=== PATIENT | female | born 1990 | race Caucasian/White ===

== ENCOUNTER → 2016-07-31 | Outpatient (CLI) | payer OTHER ==
[~2016-07-31] MED LIST: AMITRIPTYLINE10 MG PO; CIPRO 500MG TA500 MG PO; CITALOPRAM20 MG PO; ENABLEX15 MG PO; IMODIUM2 MG OR; IRON TABLETS325 MG PO; MULTI VITAMINS1 TAB PO; NAPROSYN 500MG500 MG PO; PERCOCET 5/3251 EACH PO; PHENERGAN 25MG.25 M1 PO; PROBIOTICA100 MILLIO PO; PYRIDIUM 200MG200 MG PO; XANAX 0.5MG TA0.5 MG PO
[2016-07-31 17:02] LABS: HEMOGLOBIN 15.4 g/dL (12.2-16.2); LYMPH # 1.8 K/mm3 (0.7-4.5)
[2016-07-31 19:24] LABS: BUN 16 mg/dL (7-18); GFR (ESTIMATED) 85 ML/MIN (59-)
[2016-08-02 08:43] LABS: Vitamin D, 25-Hydroxy 20.3 ng/mL (30.0-100.0)
== END ==
LOC: LAB 16:37
PROVIDERS: Physician Assistant
DX: R53.83 Other fatigue (principal); R63.5 Abnormal weight gain

== ENCOUNTER 2016-08-16 09:36 | Emergency (ER) | payer OTHER ==
[~2016-08-16] VITALS: Ht 157.5 cm; Wt 79.4 kg
--- OUTSIDE RECORDS SUMMARY | 2016-08-16 09:41 | External Medical Summary Rpt ---
Author Author , Organization [employer] Address Unknown Phone Unavailable Care Team Providers Care Head Tennis Coach Name Role Phone Seth Fischer MD, Unavailable Unavailable Seth Fischer MD Purpose Continuity of Care Document - 03-06-2013 through 2016 Problems Code Diagnosis DOS Provider Status 285.1 285.1 AC 03-12-2013 [place] [facility] 998.11 998.11 03-12-2013 [facility] PROCEDURE Allergies, Adverse Reactions, Alerts Type Drug Allergy Adverse Reaction to Substance Substance Reaction Severity Penicillin I-RASH Unknown SULFA (sulfonamide) I-RASH Unknown Medications Na ND Rx Da Fi Fi Am Da Di Ph RX Ph St me C No te ll ll ou ys ag ar # ys at rm s nt no ma ic us Or Da si cy ia de te s n re d PN 00 11 0 No EU 00 -2 MO 64 8- Lo VA 94 20 ng X 30 13 er 23 0 Ac ti AL ve SO 00 11 0 No DI 40 -2 UM 97 7- Lo 98 20 ng CH 30 13 er LO 9 RI Ac DE ti ve 0. 9% SO MARGARETH TI ON LA [address] 40 -2 AT 97 7- Lo ED 95 20 ng 30 13 er RI 9 NG Ac ER ti S ve IN JE CT IO N Sa 63 11 1 No li 80 -2 ne 70 7- Lo 10 20 ng Fl 07 13 er us 5 h Ac 10 ti ML ve Sy ri ng e KE 00 11 0 No TO 40 -2 RO 93 7- Lo LA 79 20 ng C 50 13 er 30 1 Ac MG ti /M ve L AL OX 00 11 1 No YC 40 -2 OD 60 7- Lo ON 51 20 ng E- 26 13 er AC 2 ET Ac AM ti IN ve OP HE N 5- 32 5 Mo 00 11 0 No rp 40 -2 hi 91 7- Lo ne 25 20 ng 83 13 er 4M 0 G/ Ac Ml ti ve Sy ri ng e OX 00 11 1 No AZ 22 -2 EP 82 7- Lo AM 06 20 ng 91 13 er 15 0 Ac MG ti ve CA PS UL E Mo 00 11 1 No rp 40 -2 hi 91 7- Lo ne 25 20 ng 83 13 er 4M 0 G/ Ac Ml ti ve Sy ri ng e ON 00 11 1 No DA 64 -2 NS 16 7- Lo ET 08 20 ng RO 02 13 er N 5 HC Ac L ti 4 ve MG /2 ML AL LA [address] 40 -2 AT 97 3- Lo ED 95 20 ng 30 13 er RI 9 NG Ac ER ti S ve IN JE CT IO N LO 00 11 0 No VE 07 -2 NO 50 3- Lo X 62 20 ng 40 04 13 er 1 MG Ac /0 ti .4 ve ML SY RI NG E LE 00 11 1 No XA 45 -2 CO 62 3- Lo O 02 20 ng 20 06 13 er 3 MG Ac ti TA ve BL ET OX 00 11 1 No YC 40 -2 OD 60 3- Lo ON 55 20 ng E 26 13 er HC 2 L Ac 5 ti MG ve TA BL ET AM 51 11 1 No IT 07 -2 RI 90 3- Lo PT 10 20 ng YL 72 13 er IN 0 E Ac HC ti L ve 25 MG TA B CE 00 11 0 No FA 40 -2 ZO 92 2- Lo LI 58 20 ng N 50 13 er 1 1 GM Ac ti AD ve D- VA N AL SO 00 11 0 No DI 40 -2 UM 97 2- Lo 10 20 ng CH 16 13 er LO 6 RI Ac DE ti ve 0. 9% SO LN LA [address] 40 -2 AT 97 2- Lo ED 95 20 ng 30 13 er RI 9 NG Ac ER ti S ve IN JE CT IO N SO 00 11 0 No DI 40 -2 UM 97 2- Lo 97 20 ng CH 20 13 er LO 8 RI Ac DE ti ve 0. 9% IR RI G. LO 00 11 0 No VE 07 -2 NO 50 2- Lo X 62 20 ng 30 43 13 er 1 MG Ac /0 ti .3 ve ML SY RI NG E NA 63 11 0 No RO 32 -2 PI 30 2- Lo N 28 20 ng 0. 63 13 er 5% 0 Ac 15 ti 0 ve MG /3 0 ML AL MA 00 11 2 No PA 90 -2 P 41 2- Lo 32 98 20 ng 5 26 13 er MG 1 Ac TA ti BL ve ET OX 00 11 2 No AZ 22 -2 EP 82 2- Lo AM 06 20 ng 91 13 er 15 0 Ac MG ti ve CA PS UL E KE 00 11 0 No TO 40 -2 RO 93 2- Lo LA 79 20 ng C 50 13 er 30 1 Ac MG ti /M ve L AL Mo 00 11 0 No rp 40 -2 hi 91 2- Lo ne 25 20 ng 83 13 er 4M 0 G/ Ac Ml ti ve Sy ri ng e Mo 00 11 2 No rp 40 -2 hi 91 2- Lo ne 25 20 ng 83 13 er 4M 0 G/ Ac Ml ti ve Sy ri ng e Mo 00 11 2 No rp 40 -2 hi 91 2- Lo ne 76 20 ng 23 13 er 2M 0 G/ Ac Ml ti ve Sy ri ng e Mo 00 11 0 No rp 40 -2 hi 91 2- Lo ne 25 20 ng 83 13 er 4M 0 G/ Ac Ml ti ve Sy ri ng e SI 63 11 2 No ME 73 -2 TH 90 2- Lo IC 22 20 ng ON 51 13 er E 0 80 Ac ti MG ve TA B CH EW ON 00 11 0 No DA 64 -2 NS 16 2- Lo ET 08 20 ng RO 02 13 er N 5 HC Ac L ti 4 ve MG /2 ML AL Vital Signs 03-12-2013 11:03 Name Value Interpretat Reference Comment ion Range Body 98.2 [degF] Temperature BP 60 mm[Hg] Diastolic BP Systolic 114 mm[Hg] Heart 87 /min Rate/Pulse Respiratory 18 /min Rate 03-12-2013 07:45 Name Value Interpretat Reference Comment ion Range O2% 100 % 03-11-2013 21:00 Name Value Interpretat Reference Comment ion Range Height 157.48 cm Weight 60.867 kg Measured 03-11-2013 17:52 Name Value Interpretat Reference Comment ion Range Body 98 [degF] Temperature BP 89 mm[Hg] Diastolic BP Systolic 147 mm[Hg] Heart 113 /min Rate/Pulse O2% 100 % Respiratory 20 /min Rate Weight 0 [oz_av] Measured 03-08-2013 08:56 Name Value Interpretat Reference Comment ion Range Body 98.9 [degF] Temperature BP 61 mm[Hg] Diastolic BP Systolic 97 mm[Hg] Heart 82 /min Rate/Pulse Respiratory 18 /min Rate 03-08-2013 07:35 Name Value Interpretat Reference Comment ion Range O2% 98 % 03-06-2013 20:40 Name Value Interpretat Reference Comment ion Range Body 98.5 [degF] Temperature BP 56 mm[Hg] Diastolic BP Systolic 90 mm[Hg] Heart 78 /min Rate/Pulse O2% 96 % Respiratory 18 /min Rate Results Labs Lab Lab Date Result Refere Interp Status Commen Order Detail nces retati t Range on BASIC METABOLIC PANEL (03-12-2013 08:30) Glucose 85 74-106 complet 013 mg/dL ed Bld-mCn 08:30 c BUN 6 mg/dL 7-18 complet Bld-mCn 013 ed c 08:30 Creat 0.7 0.6-1.0 complet SerPl-m 013 mg/dL ed Cnc 08:30 Creat 118 50-200 complet Cl 013 ML/MIN ed predict 08:30 ed SerPl C-G-vRa te GFR/BSA 102 59- complet .pred 013 ML/MIN ed SerPl 08:30 Schwart z-vRate Sodium 143 136-145 complet SerPl-s 013 mmoL/L ed Cnc 08:30 Potassi 4.0 3.5-5.1 complet um 013 mmoL/L ed SerPl-s 08:30 Cnc Chlorid 108 98-107 complet e 013 mmoL/L ed SerPl-s 08:30 Cnc CO2 29 21.0-32 complet SerPl-s 013 mmoL/L .0 ed Cnc 08:30 Calcium 7.7 8.5-10. complet 013 mg/dL 1 ed SerPl-m 08:30 Cnc CBC with AUTO DIFF (03-12-2013 08:30) WBC # 03-12-2 5.7 4.8-10. complet Bld 013 K/MM3 8 ed Auto 08:30 RBC # 03-12-2 3.69 4.2-5.4 complet Bld 013 M/mm3 ed Auto 08:30 Hgb 03-12-2 10.4 12.2-16 complet Bld-mCn 013 g/dL .2 ed c 08:30 Hct Fr 03-12-2 30.8 % 37.0-47 complet Bld 013 .0 ed 08:30 MCV RBC 03-12-2 83.6 fl 82.2-97 complet 013 .8 ed 08:30 MCH RBC 03-12-2 28.1 pg 27-31.2 complet Qn 013 ed Auto 08:30 MEAN 03-12-2 33.6 31.8-35 complet CORPUSC 013 g/dl .4 ed ULAR 08:30 HGB CONC RDW RBC 03-12-2 15.3 % 11.5-17 complet Auto 013 .5 ed 08:30 Platele 03-12-2 150 142-424 complet t Bld 013 K/mm3 ed Ql 08:30 Manual MEAN 2 8.9 fl 7.4-10. complet PLATELE 013 4 ed T 08:30 VOLUME Granulo 03-12-2 74.3 % 37.0-80 complet cytes 013 .0 ed Fr Bld 08:30 Auto LYMPH % 03-12-2 18.3 % 10-50.0 complet 013 ed 08:30 Monocyt 03-12-2 6.3 % 1.7-9.3 complet es Fr 013 ed Bld 08:30 Auto Eosinop 28-2 1.0 % 0.1-12. complet hil Fr 013 0 ed Bld 08:30 Auto Basophi 28-2 0.1 % 0.1-2.0 complet ls Fr 013 ed Bld 08:30 Auto Granulo -28-2 4.2 1.8-7.8 complet cytes # 013 K/mm3 ed Bld 08:30 Auto Lymphoc -28-2 1.0 0.7-4.5 complet ytes Fr 013 K/mm3 ed Bld 08:30 Auto Monocyt 11-28-2 0.4 0.1-1.0 complet es # 013 K/mm3 ed Bld 08:30 Auto Eosinop -28-2 0.1 0.0-0.4 complet hil # 013 K/mm3 ed Bld 08:30 Auto Basophi 11-28-2 0.0 0-0.2 complet ls # 013 K/MM3 ed Bld 08:30 Auto CBC with AUTO DIFF (03-11-2013 19:55) WBC # 11-27-2 7.2 4.8-10. complet Bld 013 K/mm3 8 ed Auto 19:55 RBC # 1127-2 3.85 4.2-5.4 complet Bld 013 M/mm3 ed Auto 19:55 Hgb 03-11-2 10.7 12.2-16 complet Bld-mCn 013 g/dL .2 ed c 19:55 Hct Fr 03-11-2 32.4 % 37.0-47 complet Bld 013 .0 ed 19:55 MCV RBC 03-11-2 84.1 fL 82.2-97 complet 013 .8 ed 19:55 MCH RBC 03-11-2 27.8 pg 27-31.2 complet Qn 013 ed Auto 19:55 MEAN 03-11-2 33.0 31.8-35 complet CORPUSC 013 g/dl .4 ed ULAR 19:55 HGB CONC RDW RBC 03-11-2 14.7 % 11.5-17 complet Auto 013 .5 ed 19:55 Platele 03-11-2 186 142-424 complet t Bld 013 K/mm3 ed Ql 19:55 Manual Granulo 03-11-2 77.1 % 37.0-80 complet cytes 013 .0 ed Fr Bld 19:55 Auto LYMPH % 11-2 18.1 % 10-50.0 complet 013 ed 19:55 Monocyt 03-11-2 4.8 % 1.7-9.3 complet es Fr 013 ed Bld 19:55 Auto Granulo 11--2 5.6 1.8-7.8 complet cytes # 013 K/mm3 ed Bld 19:55 Auto Lymphoc 03-11-2 1.3 0.7-4.5 complet ytes Fr 013 K/mm3 ed Bld 19:55 Auto Monocyt 11-2 0.3 0.1-1.0 complet es # 013 K/mm3 ed Bld 19:55 Auto BASIC METABOLIC PANEL (03-11-2013 18:10) Glucose 03-11-2 96 74-106 complet 013 mg/dL ed Bld-mCn 18:10 c BUN 03-11-2 8 mg/dL 7-18 complet Bld-mCn 013 ed c 18:10 Creat 03-11-2 0.7 0.6-1.0 complet SerPl-m 013 mg/dL ed Cnc 18:10 GFR/BSA 102 59- complet .pred 013 ML/MIN ed SerPl 18:10 Schwart z-vRate Sodium 142 136-145 complet SerPl-s 013 mmoL/L ed Cnc 18:10 Potassi 4.0 3.5-5.1 complet um 013 mmoL/L ed SerPl-s 18:10 Cnc Chlorid 105 98-107 complet e 013 mmoL/L ed SerPl-s 18:10 Cnc CO2 29 21.0-32 complet SerPl-s 013 mmoL/L .0 ed Cnc 18:10 Calcium 8.6 8.5-10. complet 013 mg/dL 1 ed SerPl-m 18:10 Cnc CBC with AUTO DIFF (03-11-2013 18:10) WBC # 03-11-2 6.1 4.8-10. complet Bld 013 K/MM3 8 ed Auto 18:10 RBC # 2 4.00 4.2-5.4 complet Bld 013 M/mm3 ed Auto 18:10 Hgb 11.4 12.2-16 complet Bld-mCn 013 g/dL .2 ed c 18:10 Hct Fr 33.3 % 37.0-47 complet Bld 013 .0 ed 18:10 MCV RBC 83.4 fl 82.2-97 complet 013 .8 ed 18:10 MCH RBC 28.4 pg 27-31.2 complet Qn 013 ed Auto 18:10 MEAN 34.1 31.8-35 complet CORPUSC 013 g/dl .4 ed ULAR 18:10 HGB CONC RDW RBC 14.5 % 11.5-17 complet Auto 013 .5 ed 18:10 Platele 214 142-424 complet t Bld 013 K/mm3 ed Ql 18:10 Manual MEAN 2 8.1 fl 7.4-10. complet PLATELE 013 4 ed T 18:10 VOLUME Granulo 68.2 % 37.0-80 complet cytes 013 .0 ed Fr Bld 18:10 Auto LYMPH % 11-27-2 22.8 % 10-50.0 complet 013 ed 18:10 Monocyt 11-27-2 7.0 % 1.7-9.3 complet es Fr 013 ed Bld 18:10 Auto Eosinop 11-27-2 1.9 % 0.1-12. complet hil Fr 013 0 ed Bld 18:10 Auto Basophi 11-27-2 0.1 % 0.1-2.0 complet ls Fr 013 ed Bld 18:10 Auto Granulo 11-27-2 4.1 1.8-7.8 complet cytes # 013 K/mm3 ed Bld 18:10 Auto Lymphoc 11-27-2 1.4 0.7-4.5 complet ytes Fr 013 K/mm3 ed Bld 18:10 Auto Monocyt 11-27-2 0.4 0.1-1.0 complet es # 013 K/mm3 ed Bld 18:10 Auto Eosinop -27-2 0.1 0.0-0.4 complet hil # 013 K/mm3 ed Bld 18:10 Auto Basophi 11-27-2 0.0 0-0.2 complet ls # 013 K/MM3 ed Bld 18:10 Auto BASIC METABOLIC PANEL (03-07-2013 05:40) Glucose 03-07- 90 74-106 complet 013 mg/dL ed Bld-mCn 05:40 c BUN 03-07-2 8 mg/dL 7-18 complet Bld-mCn 013 ed c 05:40 Creat 03-07-2 0.8 0.6-1.0 complet SerPl-m 013 mg/dL ed Cnc 05:40 GFR/BSA 03-07- 87 59- complet .pred 013 ML/MIN ed SerPl 05:40 Schwart z-vRate Sodium 03-07- 144 136-145 complet SerPl-s 013 mmoL/L ed Cnc 05:40 Potassi 03-07-2 4.0 3.5-5.1 complet um 013 mmoL/L ed SerPl-s 05:40 Cnc Chlorid 108 98-107 complet e 013 mmoL/L ed SerPl-s 05:40 Cnc CO2 30 21.0-32 complet SerPl-s 013 mmoL/L .0 ed Cnc 05:40 Calcium 11-23-2 7.9 8.5-10. complet 013 mg/dL 1 ed SerPl-m 05:40 Cnc CBC with AUTO DIFF (03-07-2013 05:40) WBC # 11-23-2 7.9 4.8-10. complet Bld 013 K/MM3 8 ed Auto 05:40 RBC # 11-23-2 3.36 4.2-5.4 complet Bld 013 M/mm3 ed Auto 05:40 Hgb 11-23-2 9.6 12.2-16 complet Bld-mCn 013 g/dL .2 ed c 05:40 Hct Fr 11-23-2 27.8 % 37.0-47 complet Bld 013 .0 ed 05:40 MCV RBC 11-23-2 82.8 fl 82.2-97 complet 013 .8 ed 05:40 MCH RBC 11-23-2 28.5 pg 27-31.2 complet Qn 013 ed Auto 05:40 MEAN 11-23-2 34.4 31.8-35 complet CORPUSC 013 g/dl .4 ed ULAR 05:40 HGB CONC RDW RBC 11-23-2 14.5 % 11.5-17 complet Auto 013 .5 ed 05:40 Platele 11-23-2 172 142-424 complet t Bld 013 K/mm3 ed Ql 05:40 Manual MEAN 11-23-2 8.5 fl 7.4-10. complet PLATELE 013 4 ed T 05:40 VOLUME Granulo 11-23-2 76.2 % 37.0-80 complet cytes 013 .0 ed Fr Bld 05:40 Auto LYMPH % 11-23-2 16.2 % 10-50.0 complet 013 ed 05:40 Monocyt 11-23-2 7.4 % 1.7-9.3 complet es Fr 013 ed Bld 05:40 Auto Eosinop 11-23-2 0.1 % 0.1-12. complet hil Fr 013 0 ed Bld 05:40 Auto Basophi 11-23-2 0.1 % 0.1-2.0 complet ls Fr 013 ed Bld 05:40 Auto Granulo 11-23-2 6.0 1.8-7.8 complet cytes # 013 K/mm3 ed Bld 05:40 Auto Lymphoc 11-23-2 1.3 0.7-4.5 complet ytes Fr 013 K/mm3 ed Bld 05:40 Auto Monocyt 11-23-2 0.6 0.1-1.0 complet es # 013 K/mm3 ed Bld 05:40 Auto Eosinop 11-23-2 0.0 0.0-0.4 complet hil # 013 K/mm3 ed Bld 05:40 Auto Basophi -23-2 0.0 0-0.2 complet ls # 013 K/MM3 ed Bld 05:40 Auto URINALYSIS/COMPLETE (03-06-2013 11:30) URINE -22-2 YELLOW YELLOW complet COLOR 013 ed 11:30 URINE -22-2 CLEAR CLEAR complet APPEARA 013 ed NCE 11:30 URINE 11-22-2 NEGATIV NEG complet GLUCOSE 013 E ed - 11:30 DIPSTIC K URINE 11-22-2 NEGATIV NEG complet BILIRUB 013 E ed IN - 11:30 DIPSTIC K URINE 11-22-2 NEGATIV NEG complet KETONE 013 E mg/dL ed 11:30 URINE 11-22-2 Less 1.005-1 complet SPECIFI 013 than or .030 ed C 11:30 equal GRAVITY to 1.005 URINE 11-22-2 3+ NEG complet BLOOD 013 ed 11:30 URINE 11-22-2 6.0 UNK 5.0-8.5 complet PH 013 ed 11:30 URINE 11-22-2 NEGATIV NEG complet PROTEIN 013 E mg/dL ed - 11:30 DIPSTIC K URINE 11-22-2 0.2 NEG complet UROBILI 013 E.U./dL ed NOGEN - 11:30 DIPSTIC K URINE 11-22-2 NEGATIV NEG complet NITRATE 013 E ed - 11:30 DIPSTIC K URINE 11-22-2 NEGATIV NEG complet LEUK 013 E ed ESTERAS 11:30 E URINE 11-22-2 TNTC 0 complet RBC 013 rbc/hpf ed 11:30 URINE 11-22-2 OCC O complet WBC 013 wbc/hpf ed 11:30 URINE 11-22-2 OCC NONE complet AMORPH 013 ed SEDIMEN 11:30 T Procedures Procedure DOS Code Location Performer Comment PACKED 99.04 Seth Fischer MD TRANSFUSI ON Encounters Encounter Start End Date Code Location Performer Type Date Inpatient 11-27-201 11-28-201 [place] ([place]) 3 18:14 3 11:05 [facility] Inpatient [place]SI [place] ([place] 3 06:01 3 09:31 [facility]
--- OUTSIDE RECORDS SUMMARY | 2016-08-16 09:41 | External Medical Summary Rpt ---
Author Author , Organization [employer] Address Unknown Phone Unavailable Care Team Providers Care Marketing Automation Manager Name Role Phone Seth Fischer MD, Unavailable Unavailable Seth Fischer MD Purpose Continuity of Care Document - 03-06-2013 through 2016 Problems Code Diagnosis DOS Provider Status 285.1 285.1 AC 03-12-[address] [place] [address] [facility] 998.11 998.11 03-12-2013 [facility] PROCEDURE Allergies, Adverse Reactions, Alerts Type [...] 00 11 1 No XA 45 -2 ND 62 3- Lo O 02 20 ng [...] Fischer MD ([place]) 3 18:14 3 11:05 [facility] Inpatient DAYSI [place] ([place]) 3 06:01 3 09:31 [facility]
--- OUTSIDE RECORDS SUMMARY | 2016-08-16 09:42 | External Medical Summary Rpt ---
Demographics Preferred Language Bahraini Marital Status Unknown Mandaeism Affiliation Unknown Race Unknown Ethnic Group Unknown Author Author , Organization [employer] Address Unknown Phone Unavailable Purpose Continuity of Care Document - through 2016 Immunization No patient found.
--- OUTSIDE RECORDS SUMMARY | 2016-08-16 09:42 | External Medical Summary Rpt ---
Demographics Preferred Language French Marital Status Unknown Oriental Orthodox Affiliation Unknown Race Unknown Ethnic Group Unknown Author Author , Organization [employer] Address Unknown Phone Unavailable Purpose Continuity of Care Document - through 2016 Immunization No patient found.
--- OUTSIDE RECORDS SUMMARY | 2016-08-16 09:42 | External Medical Summary Rpt ---
Author Author [employer], [employer] Organization [employer] Address Unknown Phone Unavailable
--- OUTSIDE RECORDS SUMMARY | 2016-08-16 09:43 | External Medical Summary Rpt ---
Author Author , Organization [employer] Address Unknown Phone Unavailable Care Team Providers Care Enterprise Systems Manager Name Role Phone Seth Fischer MD, Unavailable Unavailable Seth Fischer MD Purpose Continuity of Care Document - 03-06-2013 through 2016 Problems Code Diagnosis DOS Provider Status 285.1 285.1 AC 03-12-2013 [place] [facility] 998.11 998.11 03-12-2013 [facility] PROCEDURE Allergies, Adverse Reactions, Alerts Type [...] 00 11 1 No XA 45 -2 [place] 62 3- Lo O 02 20 ng [...] Fischer MD ([place]) 3 18:14 3 11:05 [facility] Inpatient DAYSI [place] MD ([place]) 3 06:01 3 09:31 [facility]
--- OUTSIDE RECORDS SUMMARY | 2016-08-16 09:43 | External Medical Summary Rpt ---
Author Author , Organization [employer] Address Unknown Phone Unavailable Care Team Providers Care Vegetable Tier Name Role Phone Seth Fischer MD, Unavailable Unavailable Seth Fischer MD Purpose Continuity of Care Document - 03-06-2013 through 2016 Problems Code Diagnosis DOS Provider Status 285.1 285.1 AC 03-12-2013 [place] [facility] 998.11 998.11 03-12-2013 [facility] PROCEDURE Allergies, Adverse Reactions, Alerts Type [...] 00 11 1 No XA 45 -2 [place] 62 3- Lo O 02 20 ng [...] Fischer MD ([place]) 3 18:14 3 11:05 [facility] Inpatient DAYSI Fischer MD ([place]) 3 06:01 3 09:31 [facility]
--- OUTSIDE RECORDS SUMMARY | 2016-08-16 09:44 | External Medical Summary Rpt ---
Demographics Preferred Language Sammarinese Marital Status Unknown Restorationism Affiliation Unknown Race Unknown Ethnic Group Unknown Author Author , Organization [employer] Address Unknown Phone Unavailable Purpose Continuity of Care Document - through 2016 Immunization No patient found.
--- OUTSIDE RECORDS SUMMARY | 2016-08-16 09:44 | External Medical Summary Rpt ---
Demographics Preferred Language Canadian Marital Status Unknown Worship Affiliation Unknown Race Unknown Ethnic Group Unknown Author Author , Organization [employer] Address Unknown Phone Unavailable Purpose Continuity of Care Document - through 2016 Immunization No patient found.
[2016-08-16] MEDS ORDERED: ZOLOFT100 M1 PO (09:47)
[2016-08-16] MEDS ORDERED: ABILIFY2 MG PO (09:47)
[2016-08-16] MEDS ORDERED: VITAMIN D31000 IU PO (09:48)
[2016-08-16] MEDS ORDERED: VISTARIL25 MG PO (09:48)
[2016-08-16] MEDS ORDERED: SPIRONOLACTONE25 MG PO (09:49)
--- NOTE | 2016-08-16 10:02 | Urgent Treatment Center Report ---
History of Present Issue Date/Time Seen by Provider 08/16/16 0996 Visit Reason Pt arrived:Walked Presenting Problem:PT STATES SHE BEGAN FEELING BAD YESTERDAY. STATES SORE THROAT , COUGH, RIGHT EAR ACHE, CHILLS/SWEATS AND IRRITATION TO CHEST WHEN SHE COUGHS OR TAKES A DEEP BREATH. Location if Accident: Onset of symptoms date/time:/ or onset unknown for:MEDICAL HX UNKNOWN Have you (or family members/close friends) recently traveled outside the [place]? N If Yes, where/when: Have you had exposure to infectious disease within the past month? TB? Other? Specify: Patient states that recently had the "FLu"states that now she is having sore throat, cough, earache, and noticed that she is having chills and then breaking out into a sweat not sure if she may have had a fever or not. States that she her throat hurts and she has a bad cough. Also states that drainage from nose has changed colors from yellow to greenish color ALLERGIES Coded Allergies: Penicillins (08/16/16) Sulfa (Sulfonamide Antibiotics) (08/16/16) Home Medications Reported Medications Multiple Vitamin (Multi Vitamins) 1 TAB PO DAILY AMITRIPTYLINE HCL (Amitriptyline) 15 MG PO QHS Lactobacillus Reuteri (Probiotica) 100 Million PO DAILY Alprazolam (Xanax 0.5MG) 0.5 MG PO PRN PRN anxiety SERTRALINE HCL (Zoloft) 100 MG PO DAILY Aripiprazole (Abilify) 2 MG PO QHS CHOLECALCIFEROL (VITAMIN D3) (Vitamin D) 2,000 IUNITS PO DAILY Hydroxyzine Pamoate (Vistaril) 25 MG PO DAILY Spironolactone (Spironolactone) 100 MG PO DAILY History Medical History General CAD? No Angina: Yes HI: No Hypertension? No Hyperlipidemia? No CHF? No DVT? No PE? No COPD? No Asthma? Yes Anemia? No GERD? No Gastric ulcers? No GI Bleed? No Hernia? No Thyroid Problems? No Hypothyroidism? No CVA? No Seizures? No Diabetes? No Renal Insuffiency? No UTI? Yes Stones? Yes GB Disease: No Nephritic Syndrome? No Asplenia? No Hepatitis? No Sickle Cell Disease? No Arthritis? No Migraines? No Cataracts? No Glaucoma? No MRSA? No HIV? No TB? No Anxiety? No Depression? Yes Cancer? 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 Respiratory cough Comment recently had influenza last week states that she is now having flu like symptoms along with ear pain and nasal congestion and drainage. States that she just does not feel good Physical Exam Vital Signs Vital Signs Date Time Temp Pulse Resp B/P Pulse O2 O2 Flow FiO2 Ox Delivery Rate 08/16 0943 97.8 106 20 129/80 97 General Appearance Patient appears ill sitting on exam table with sweater around her, nose red and cheeks flush Ear, Nose, Throat sinus pain/drainage, nasal congestion, THroat red, drainage noted, nares red, greenish colored mucous observed Respiratory Status Yes: trachea midline, chest symmetrical, non tender chest. No: respiratory distress. 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 No Results/Orders Orders Procedure Date/time Status [facility] STREP SCREEN 08/16 950 Active [facility] FLU A,B 08/16 950 Active Progress [facility] Progress Notes Date 08/16/16 Time 1004 Comment Both flu and strep test negative result Departure Departure Time of Disposition 1005 Disposition DC Home or Self Care(routine) Clinical Impression Primary Impression: Upper respiratory infection Qualifiers: URI type: unspecified URI Qualified Code: J06.9 - Acute upper respiratory infection, unspecified Condition STABLE Patient Instructions Cough, DI for Sinusitis, Sore Throat Additional Instructions *humidifier or vaporizer *Flonase 2 sprays each nostril daily but may take 2-3 days to notice improvement with it *Bromfed may cause drowsiness. Know how it effect you or your child. Before driving, caring for small children or sending your child to school Follow up IMMEDIATELY for new or worsening of symptoms OR no noticeable improvement over the next 48-72 hours. 911 immediately for any life threatening symptoms such as chest pain or difficulty breathing * Monitor Temp. Tylenol and/or Ibuprofen as needed. ER if fever is no less than 101 despite alternating Tylenol and Ibuprofen * Encourage fluids, water, Gatorade, powerade, pedialyte if /toddler/or child * Warm salt water gargles for throat irritation *Warm fluids *Sore throat lozenges *Sleep elevated Follow up with family doctor in 2-3 days if worsening of symptoms Discharge Counseling Counseled pt/family regarding diagnosis, test results, medications/RX, home care, follow up needs Prescriptions Current Visit Scripts Azithromycin (Zithromycin (Z-MITCHELL) 250MG Tab) 250 MG PO DAILY #6 TAB TAKE TWO (2) TABLETS ON DAY 1, THEN ONE (1) TABLET DAY #2 THRU #5 D-METHORPHAN HB/P-EPD HCL/BPM (Bromfed Dm Cough Syrup) 10 ML PO Q4HP PRN cough #120 SYR Fluticasone Propionate (Flonase 50 Mcg Nasal [place]) 2 SPRAY NA DAILY #1 BOT Methylprednisolone (Medrol Dose Mitchell) 4 MG PO UD #1 MITCHELL TAKE DIRECTED ON PACKAGING at 1007
--- NOTE | 2016-08-16 10:02 | [facility]gent [facility] Report ---
History of Present Issue Date/Time Seen by Provider 08/16/16 0970 Visit Reason Pt arrived:Walked Presenting Problem:PT STATES SHE BEGAN FEELING BAD YESTERDAY. STATES SORE THROAT , COUGH, RIGHT EAR ACHE, CHILLS/SWEATS AND IRRITATION TO CHEST WHEN SHE COUGHS OR TAKES A DEEP BREATH. Location if Accident: Onset of symptoms date/time:/ or onset unknown for:MEDICAL HX UNKNOWN Have you (or family members/close friends) recently traveled outside the [place]? N If Yes, where/when: Have you had exposure to infectious disease within the past month? TB? Other? Specify: Patient states that recently had the "FLu"states that now she is having sore throat, cough, earache, and noticed that she is having chills and then breaking out into a sweat not sure if she may have had a fever or not. States that she her throat hurts and she has a bad cough. Also states that drainage from nose has changed colors from yellow to greenish color ALLERGIES Coded Allergies: Penicillins (08/16/16) Sulfa (Sulfonamide Antibiotics) (08/16/16) Home Medications Reported Medications Multiple Vitamin (Multi Vitamins) 1 TAB PO DAILY AMITRIPTYLINE HCL (Amitriptyline) 15 MG PO QHS Lactobacillus Reuteri (Probiotica) 100 Million PO DAILY Alprazolam (Xanax 0.5MG) 0.5 MG PO PRN PRN anxiety SERTRALINE HCL (Zoloft) 100 MG PO DAILY Aripiprazole (Abilify) 2 MG PO QHS CHOLECALCIFEROL (VITAMIN D3) (Vitamin D) 2,000 IUNITS PO DAILY Hydroxyzine Pamoate (Vistaril) 25 MG PO DAILY Spironolactone (Spironolactone) 100 MG PO DAILY History Medical History General CAD? No Angina: Yes CA: No Hypertension? No Hyperlipidemia? No CHF? No DVT? No PE? No COPD? No Asthma? Yes Anemia? No GERD? No Gastric ulcers? No GI Bleed? No Hernia? No Thyroid Problems? No Hypothyroidism? No CVA? No Seizures? No Diabetes? No Renal Insuffiency? No UTI? Yes Stones? Yes GB Disease: No Nephritic Syndrome? No Asplenia? No Hepatitis? No Sickle Cell Disease? No Arthritis? No Migraines? No Cataracts? No Glaucoma? No MRSA? No HIV? No TB? No Anxiety? No Depression? Yes Cancer? 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 Respiratory cough Comment recently had influenza last week states that she is now having flu like symptoms along with ear pain and nasal congestion and drainage. States that she just does not feel good Physical Exam Vital Signs Vital Signs Date Time Temp Pulse Resp B/P Pulse O2 O2 Flow FiO2 Ox Delivery Rate 08/16 0943 97.8 106 20 129/80 97 General Appearance Patient appears ill sitting on exam table with sweater around her, nose red and cheeks flush Ear, Nose, Throat sinus pain/drainage, nasal congestion, THroat red, drainage noted, nares red, greenish colored mucous observed Respiratory Status Yes: trachea midline, chest symmetrical, non tender chest. No: respiratory distress. Cardiovascular normal exam, regular rate/rhythm, no peripheral edema Neurologic alert, chainstitch zipper setter II-XII nml as tested, normal exam, no motor/sensory deficits, oriented x 3 Medical Decision Making LABS/Meds/Orders Pt receiving controlled substance in ED? No Results/Orders Orders Procedure Date/time Status [facility] STREP SCREEN 08/16 950 Active [facility] FLU A,B 08/16 950 Active Progress [facility] Progress Notes Date 08/16/16 Time 1004 Comment Both flu and strep test negative result Departure Departure Time of Disposition 1005 Disposition DC Home or Self Care(routine) Clinical Impression Primary Impression: Upper respiratory infection Qualifiers: URI type: unspecified URI Qualified Code: J06.9 - Acute upper respiratory infection, unspecified Condition STABLE Patient Instructions Cough, DI for Sinusitis, Sore Throat Additional Instructions *humidifier or vaporizer *Flonase 2 sprays each nostril daily but may take 2-3 days to notice improvement with it *Bromfed may cause drowsiness. Know how it effect you or your child. Before driving, caring for small children or sending your child to school Follow up IMMEDIATELY for new or worsening of symptoms OR no noticeable improvement over the next 48-72 hours. 911 immediately for any life threatening symptoms such as chest pain or difficulty breathing * Monitor Temp. Tylenol and/or Ibuprofen as needed. ER if fever is no less than 101 despite alternating Tylenol and Ibuprofen * Encourage fluids, water, Gatorade, powerade, pedialyte if /toddler/or child * Warm salt water gargles for throat irritation *Warm fluids *Sore throat lozenges *Sleep elevated Follow up with family doctor in 2-3 days if worsening of symptoms Discharge Counseling Counseled pt/family regarding diagnosis, test results, medications/RX, home care, follow up needs Prescriptions Current Visit Scripts Azithromycin (Zithromycin (Z-MITCHELL) 250MG Tab) 250 MG PO DAILY #6 TAB TAKE TWO (2) TABLETS ON DAY 1, THEN ONE (1) TABLET DAY #2 THRU #5 D-METHORPHAN HB/P-EPD HCL/BPM (Bromfed Dm Cough Syrup) 10 ML PO Q4HP PRN cough #120 SYR Fluticasone Propionate (Flonase 50 Mcg Nasal [place]) 2 SPRAY NA DAILY #1 BOT Methylprednisolone (Medrol Dose Mitchell) 4 MG PO UD #1 MITCHELL TAKE DIRECTED ON PACKAGING at 1007
[2016-08-16] MEDS ORDERED: BROMFED DM COU118 ML PO (10:06)
[2016-08-16] MEDS ORDERED: MEDROL 4MG. DOSE4 MG PO (10:06)
[2016-08-16] MEDS ORDERED: FLONASE 50 MCG16 GM (10:06)
[2016-08-16] MEDS ORDERED: ZITHROMAX Z PA250 MG PO (10:06)
[2016-08-16 10:09] LABS: UTC STREP SCREEN NOT DETECTED (NOTDETECTED)
[2016-08-16 10:11] VITALS: BP 129/80
== END 2016-08-16 10:13 | disposition home or self-care (01) ==
LOC: UTC 09:36
PROVIDERS: Nurse Practitioner
DX: J06.9 Acute upper respiratory infection, unspecified (principal)